=== PATIENT | male | born 1935 | race Caucasian/White ===

== ENCOUNTER 2020-12-17 20:39 | Inpatient (IN) | payer OTHER ==
[~2020-12-17] VITALS: Ht 180.3 cm; Wt 81.6 kg
[2020-12-17 21:43] LABS: BASOPHILS 0.9 % (0-2); EOSINOPHILS 0 % (0-7); HEMATOCRIT 43.8 % (42.0-54.0); HEMOGLOBIN 14.5 g/dL (13.5-17.5); LYMPHOCYTES 6.9 % (15-50); MCH 30.7 pg (26.0-34.0); MCHC 33.2 g/dL (31.0-37.0); MCV 92.5 fL (80.0-100.0); MONOCYTES 8.5 % (2-11); NEUTROPHILS 83.7 % (40-80); PLATELET COUNT 281 10x3/uL (130-400); RBC 4.73 10x6/uL (4.20-6.10); RDW 13.1 % (11.5-14.5); WBC 18.9 10x3/uL (4.8-10.8)
[2020-12-17 21:49] LABS: APTT 28.8 SECONDS (22.8-39.4); INR 1.46 (0.85-1.17); PROTIME 16.5 SECONDS (11.6-15.0)
[2020-12-17 22:00] VITALS: BP 186/66
[2020-12-17 22:11] LABS: ALBUMIN 2.5 g/dL (3.4-5.0); ALKALINE PHOSPHATASE 86 U/L (30-120); ALT (SGPT) 16 U/L (10-68); BILIRUBIN - TOTAL 0.32 mg/dL (0.2-1.3); CALCIUM 9.5 mg/dL (8.5-10.1); CARBON DIOXIDE 19.2 mmol/L (21.0-32.0); CHLORIDE - SERUM 98 mmol/L (98-107); CKMB 1.5 U/L (0.0-3.6); CREATINE KINASE 50 UL (21-232); CREATININE - SERUM 14.3 mg/dL (0.6-1.3); GLUCOSE 187 mg/dL (74-106); LIPASE 127 U/L (73-393); MAGNESIUM - SERUM 2.7 mg/dL (1.8-2.4); PROTEIN - SERUM 8.9 g/dL (6.4-8.2); SODIUM 137 mmol/L (136-145); THYROID STIMULATING HORMONE 0.45 uIU/mL (0.36-3.74); eGFR NON AFRICAN AMERICAN 3 mL/min (90-120)
[2020-12-17 22:12] LABS: CALC OSMOLALITY 322 mosm/kg (275-300)
[2020-12-17 22:13] LABS: TROPONIN-I 0.064 ng/mL (0.000-0.060)
[2020-12-17 22:14] LABS: POTASSIUM - SERUM 6.6 mmol/L (3.5-5.1); UREA NITROGEN 135 mg/dL (7-18)
[2020-12-17 22:56] LABS: BILIRUBIN NEGATIVE (NEGATIVE); KETONE NEGATIVE (NEGATIVE); NITRITE NEGATIVE (NEGATIVE); UROBILINOGEN NORMAL mg/dL (< 2)
[2020-12-17 22:58] LABS: BACTERIA FEW HPF (NONE SEEN); WHITE CELLS - URINE 25-50 HPF (0-1)
[2020-12-17 22:59] LABS: AMORPHOUS SEDIMENT MANY LPF (NONE SEEN)
[2020-12-17 23:00] VITALS: BP 159/70
[2020-12-17 23:01] LABS: UDS - AMPHET NEGATIVE QUAL (NEGATIVE); UDS - BARB NEGATIVE QUAL (NEGATIVE); UDS - BENZO NEGATIVE QUAL (NEGATIVE); UDS - COCAINE NEGATIVE QUAL (NEGATIVE); UDS - OPIATE POSITIVE QUAL (NEGATIVE); UDS - PCP NEGATIVE QUAL (NEGATIVE); UDS - THC NEGATIVE QUAL (NEGATIVE)
--- NOTE | 2020-12-18 | NUR ---
DRAINED 1400MLS FROM PAREDES CATHETER
[2020-12-18 00:35] VITALS: BP 148/54; BMI 25.1
[2020-12-18 04:00] VITALS: BP 102/76
[2020-12-18 06:15] LABS: BASOPHILS 0.1 % (0-2); EOSINOPHILS 0.1 % (0-7); HEMATOCRIT 38.8 % (42.0-54.0); HEMOGLOBIN 13.2 g/dL (13.5-17.5); MCH 31.4 pg (26.0-34.0); MCHC 33.9 g/dL (31.0-37.0); MCV 92.5 fL (80.0-100.0); MEAN PLATELET VOLUME 7.8 fL (7.4-10.4); MONOCYTES 7.7 % (2-11); NEUTROPHILS 86.1 % (40-80); PLATELET COUNT 256 10x3/uL (130-400); RBC 4.19 10x6/uL (4.20-6.10); RDW 13.1 % (11.5-14.5); WBC 15.9 10x3/uL (4.8-10.8)
[2020-12-18 06:41] LABS: CALCIUM 9.2 mg/dL (8.5-10.1); CARBON DIOXIDE 23.8 mmol/L (21.0-32.0); MAGNESIUM - SERUM 2.5 mg/dL (1.8-2.4); PHOSPHOROUS 6.3 mg/dL (2.5-4.9)
[2020-12-18 06:42] LABS: ANION GAP 19.5 mmol/L (8-16); CREATININE - SERUM 8.4 mg/dL (0.6-1.3); POTASSIUM - SERUM 5.3 mmol/L (3.5-5.1); TROPONIN-I 0.072 ng/mL (0.000-0.060)
--- NOTE | 2020-12-18 08:02 | NUR ---
PT LYING IN BED, AWAKE, RR EVEN NON LABORED, WITH O2 IN PLACE VIA NC. PT ANSWERS SOME QUESTIONS, ORAL MEDS HELD UNTIL PTS AWAKE MORE. NO NEEDS VOICED CLWR.
[2020-12-18 14:21] VITALS: Ht 180.3 cm; Wt 81.6 kg
--- NOTE | 2020-12-18 15:37 | NUR ---
SCHEDULED IV FLUIDS GIVEN, IV INFUSING WITHOUT DIFFICULTY. PT LYING IN BED , HOB RAISED, ORAL CARE PERFORMED WITH ASSISTANCE OF PT. PT STATES TO HAVE PAIN TO LEFT SIDE OF THROAT, OFFERED PRN PAIN MEDICATION, PT REFUSED. DAUGHTER AT BEDSIDE. NO FURTHER NEEDS VOICED. CLWR.
[2020-12-18 21:00] VITALS: BP 111/63
[2020-12-19] VITALS: BP 140/67
--- NOTE | 2020-12-19 00:12 | NUR ---
I have reviewed this patient and I concur with the Shift Assessment completed by the Licensed Practical Nurse today this shift.
[2020-12-19 04:00] VITALS: BP 145/66
[2020-12-19 06:57] LABS: BASOPHILS 0.6 % (0-2); EOSINOPHILS 1.9 % (0-7); HEMATOCRIT 34.8 % (42.0-54.0); HEMOGLOBIN 11.5 g/dL (13.5-17.5); LYMPHOCYTES 11.1 % (15-50); MCH 30.8 pg (26.0-34.0); MCHC 33.1 g/dL (31.0-37.0); MCV 93.3 fL (80.0-100.0); MEAN PLATELET VOLUME 7.6 fL (7.4-10.4); MONOCYTES 9.6 % (2-11); NEUTROPHILS 76.8 % (40-80); PLATELET COUNT 244 10x3/uL (130-400); RBC 3.73 10x6/uL (4.20-6.10); RDW 13.5 % (11.5-14.5); WBC 14.3 10x3/uL (4.8-10.8)
[2020-12-19 07:09] LABS: ALBUMIN 2.2 g/dL (3.4-5.0); ANION GAP 12.4 mmol/L (8-16); BILIRUBIN - TOTAL 0.26 mg/dL (0.2-1.3); CALCIUM 8.5 mg/dL (8.5-10.1); CARBON DIOXIDE 26.3 mmol/L (21.0-32.0); MAGNESIUM - SERUM 1.9 mg/dL (1.8-2.4); POTASSIUM - SERUM 4.7 mmol/L (3.5-5.1); PROTEIN - SERUM 7.4 g/dL (6.4-8.2)
[2020-12-19 07:11] LABS: CREATININE - SERUM 1.9 mg/dL (0.6-1.3)
[2020-12-19 08:00] VITALS: BP 148/63
--- NOTE | 2020-12-19 09:20 | NUR ---
PT LYING IN BED WITH HOB RAISED, RR EVEN NON LABORED. PT ON ROOM AIR, ALERT, BUT CONFUSION NOTED. PT HAD LEGS OFF BED, INSTRUCTED PT TO STAY IN BED AND USE CALL LIGHT PRIOR TO EXITING BED. PT DENIES ANY PAIN. NO NEEDS VOICED. CLWR.
--- NOTE | 2020-12-19 10:23 | NUR ---
SPOKE WITH ALPHONSE BENOIT WITH NEPHRO, PER HER DO NOT REMOVE PAREDES CATH UNTIL FURTHER NOTICE. RENAL US TO BE COMPLETED FOR POSSIBLE OBSTRUCTION.
--- NOTE | 2020-12-19 11:43 | NUR ---
THERAPY IN ROOM WITH PT FOR EVAL AT THIS TIME.
--- NOTE | 2020-12-19 11:54 | NUR ---
SPEECH AND OT THERAPY SPOKE REGARDING BEDSIDE SWALLOW STUDY, ORDER RECEIVED FOR REGULAR DIET AND THIN LIQUIDS.
[2020-12-19 16:00] VITALS: BP 137/74
--- NOTE | 2020-12-19 20:01 | NUR ---
GONE TO CT VIA BED.
[2020-12-19 21:00] VITALS: BP 154/64
[2020-12-20] VITALS (7 sets, daily range): BP systolic 121–181; BP diastolic 64–83
--- NOTE | 2020-12-20 04:08 | NUR ---
I have reviewed this patient and I concur with the Shift Assessment completed by the Licensed Practical Nurse today this shift.
[2020-12-20 06:29] LABS: BASOPHILS 0.6 % (0-2); EOSINOPHILS 2.2 % (0-7); HEMATOCRIT 36.1 % (42.0-54.0); LYMPHOCYTES 17.7 % (15-50); MCH 30.8 pg (26.0-34.0); MCHC 33.3 g/dL (31.0-37.0); MCV 92.4 fL (80.0-100.0); MEAN PLATELET VOLUME 7.9 fL (7.4-10.4); MONOCYTES 10.3 % (2-11); NEUTROPHILS 69.2 % (40-80); PLATELET COUNT 240 10x3/uL (130-400); RBC 3.91 10x6/uL (4.20-6.10); RDW 13.5 % (11.5-14.5); WBC 14.2 10x3/uL (4.8-10.8)
--- NOTE | 2020-12-20 06:38 | NUR ---
LAB CALLED WITH POSITIVE BLOOD CULTURE. GRAM POSITIVE COCCI. MIKI REYNOLDS AND ORDERD VANC TO BE DOSED BY PHARMACY.
[2020-12-20 06:41] LABS: ALBUMIN 2.3 g/dL (3.4-5.0); ANION GAP 14.5 mmol/L (8-16); BILIRUBIN - TOTAL 0.37 mg/dL (0.2-1.3); CALCIUM 8.9 mg/dL (8.5-10.1); CARBON DIOXIDE 24.5 mmol/L (21.0-32.0); CREATININE - SERUM 1.2 mg/dL (0.6-1.3); MAGNESIUM - SERUM 1.8 mg/dL (1.8-2.4); PROTEIN - SERUM 7.5 g/dL (6.4-8.2)
--- NOTE | 2020-12-20 07:00 | NUR ---
REPORT RECEIVED. PATIENT IS LYING IN BED, RESTING WITH EYES CLOSED. NO S/S OF DISTRESS OBSERVED, RR EVEN AND UNLABORED ON ROOM AIR. PIV TO LT AC PATENT, INFUSING LR, PIV TO LT FA PATENT. PATIENT HAS A CONTUSION TO RIGHT SIDE OF FOREHEAD FROM FALL LAST NIGHT. F/C PATENT, DRAINING CLEAR YELLOW URINE BY GRAVITY TO LEFT SIDE OF BED. NO NEEDS EXPRESSED AT THIS TIME. CL IN REACH, BED LOCKED AND LOWERED. BED ALARM ON. WILL CPOC.
--- NOTE | 2020-12-20 10:12 | NUR ---
PHYSICAL THERAPY REPORTED TO THIS NURSE THAT PATIENT IS HAVING RIGHT SIDED WEAKNESS, RIGHT SIDE FACIAL DROOP, AND SLURRED SPEECH. REPORTED THESE FINDINGS TO PRISCILLA EMMANUEL APN.
--- NOTE | 2020-12-20 12:35 | NUR ---
Nutrition Follow-up: Diet advanced to regular with thin liquids following ST eval yesterday. Noted PT reported R-sided weakness, facial droop and slurred speech this AM. MRI pending. ST to re-evaluate. Diet: Regular PO intake: 50-75% yesterday Wt: 180# (12/18) Labs noted: Na 147, Glu 155, A1c 7.1, Alb 2.3 Meds noted: Florajen, Pepcid, LR @ 75, electrolyte protocol -Change to carb consistent diet (A1c 7.1); consistencies per COMPUTER EQUIPMENT INSTALLER. -Encourage PO intake and honor food preferences within diet restrictions. -Need new wt. -RD follow-up: 12/24
--- NOTE | 2020-12-20 14:08 | NUR ---
OT NOTE: UPON ENTERING ROOM, PT WAS VERY LETHARGIC. ATTEMPTED TO ASK PT QUESTIONS BUT HIS SPEECH WAS VERY GARBLED.. RE ASSESSED PT AND HE WAS NOTED TO HAVE VERY POOR MOVEMENT ON R SIDE; NOW MAX ASSIST WITH BED MOB; UNABLE TO GRASP WALKER WITH R HAND; DIFFICULTY ADVANCING R FOOT FOR TRANSFERS.. UNABLE TO PERFORM ADLS. INFORMED NURSING..PT APPARENTLY HAD A FALL LAST NIGHT, HOWEVER, TODAY, HE IS MUCH DIFFERENT THAN WHEN EVALUATED YESTERDAY. S/S OF CVA.. FORTINO DENISE, OTR/L 2-107
[2020-12-21 05:18] VITALS: BP 153/52
[2020-12-21 06:14] LABS: BASOPHILS 0.9 % (0-2); EOSINOPHILS 3.1 % (0-7); HEMATOCRIT 34.6 % (42.0-54.0); HEMOGLOBIN 11.7 g/dL (13.5-17.5); LYMPHOCYTES 23.8 % (15-50); MCH 31.3 pg (26.0-34.0); MCHC 33.9 g/dL (31.0-37.0); MCV 92.1 fL (80.0-100.0); MEAN PLATELET VOLUME 8.1 fL (7.4-10.4); MONOCYTES 9.8 % (2-11); NEUTROPHILS 62.4 % (40-80); PLATELET COUNT 251 10x3/uL (130-400); RBC 3.75 10x6/uL (4.20-6.10); RDW 13.4 % (11.5-14.5)
[2020-12-21 06:37] LABS: ALBUMIN 2.1 g/dL (3.4-5.0); ALKALINE PHOSPHATASE 67 U/L (30-120); BILIRUBIN - TOTAL 0.37 mg/dL (0.2-1.3); CALCIUM 8.5 mg/dL (8.5-10.1); CARBON DIOXIDE 27.1 mmol/L (21.0-32.0); CHLORIDE - SERUM 111 mmol/L (98-107); GLUCOSE 149 mg/dL (74-106); MAGNESIUM - SERUM 1.6 mg/dL (1.8-2.4); POTASSIUM - SERUM 3.5 mmol/L (3.5-5.1); PROTEIN - SERUM 6.9 g/dL (6.4-8.2); SODIUM 145 mmol/L (136-145); eGFR NON AFRICAN AMERICAN 75 mL/min (90-120)
[2020-12-21 06:41] LABS: ALT (SGPT) 24 U/L (10-68); CALC OSMOLALITY 295 mosm/kg (275-300); UREA NITROGEN 23 mg/dL (7-18)
--- NOTE | 2020-12-21 07:15 | NUR ---
RECEIVE SHIFT REPORT. ON CONTACT ISOLATION. RESTING IN BED WITH TV ON. WILL CONTINUE POC AND SAFETY PRECAUTIONS. CALL LIGHT IN REACH.
[2020-12-21 09:29] VITALS: BP 169/60
--- NOTE | 2020-12-21 10:46 | NUR ---
PER IDT THIS AM WITH BRENNA TRAN AND FORTINO ZARAGOZA CM AND SKYLER. WE DISCUSSED PROGRESS NOTE FROM 12/18 WHERE DAUGHTER WANTS PATIENT MADE DNR. MARJAN SAID YES TO MAKE HIM ONE. NEW ORDERS PLACED.
[2020-12-21 12:42] VITALS: BP 158/59
--- NOTE | 2020-12-21 15:40 | NUR ---
REHAB PRESCREENING Rehab referral received and chart reviewed. This patient is only doing standing with PT. We will continue to follow this patient for functional improvement. May need SNF placement. Thank you for this referral! Rylee Garrido, PALM GATHERER Rehab PD
--- NOTE | 2020-12-21 15:59 | NUR ---
OT NOTE: PT REQUIRED MAX A FOR SUPINE TO SIT. PT REQUIRED CGA-MIN A FOR STATIC SITTING BALANCE. PT COMPLETED WT BEARING IN RUE TO FACILITATE FUNCTIONAL RETURN. PT COMPLETED SIT TO STAND WITH MOD A. BED ALARM ON AND CL WITHIN REACH. [phone] JESUS WOODWARD COTA
[2020-12-21 20:37] VITALS: BP 164/56
[2020-12-22 06:51] LABS: BASOPHILS 1.2 % (0-2); EOSINOPHILS 3.4 % (0-7); HEMATOCRIT 34.8 % (42.0-54.0); HEMOGLOBIN 11.7 g/dL (13.5-17.5); LYMPHOCYTES 20.9 % (15-50); MCH 30.9 pg (26.0-34.0); MCHC 33.6 g/dL (31.0-37.0); MCV 92.1 fL (80.0-100.0); MEAN PLATELET VOLUME 8.5 fL (7.4-10.4); NEUTROPHILS 65.5 % (40-80); PLATELET COUNT 281 10x3/uL (130-400); RBC 3.78 10x6/uL (4.20-6.10); RDW 13.2 % (11.5-14.5)
[2020-12-22 07:36] LABS: ALBUMIN 2.1 g/dL (3.4-5.0); ALKALINE PHOSPHATASE 67 U/L (30-120); ALT (SGPT) 30 U/L (10-68); BILIRUBIN - TOTAL 0.54 mg/dL (0.2-1.3); CALC OSMOLALITY 286 mosm/kg (275-300); CALCIUM 8.2 mg/dL (8.5-10.1); CARBON DIOXIDE 25.3 mmol/L (21.0-32.0); CHLORIDE - SERUM 107 mmol/L (98-107); GLUCOSE 136 mg/dL (74-106); MAGNESIUM - SERUM 1.6 mg/dL (1.8-2.4); POTASSIUM - SERUM 3.6 mmol/L (3.5-5.1); PROTEIN - SERUM 6.6 g/dL (6.4-8.2); SODIUM 142 mmol/L (136-145); VANCOMYCIN - TROUGH 15.4 ug/mL (10.0-20.0); eGFR NON AFRICAN AMERICAN 75 mL/min (90-120)
[2020-12-22 07:52] VITALS: BP 166/64
[2020-12-22 08:12] LABS: UREA NITROGEN 17 mg/dL (7-18)
--- NOTE | 2020-12-22 08:59 | NUR ---
AM MEDS GIVEN WHOLE IN APPLE SAUCE, PT TOOK ALL MEDICATIONS WITH NO TROUBLE SWALLOWING. PT ALERT BUT ONLY MUMBLES, NOT ABLE TO ASSESS FOR ORIENTATION. RESP EVEN AND NONLABORED ON RA. LT FA INFUSING LR AT 75CC/HR. SB-49 ON TELE. PAREDES DRAINING YELLOW URINE TO GRAVITY. SCDS ON BILAT. TRIED FEEDING PT HIS BREAKFAST, ONLY TOOK A COUPLE BITES AND THEN WOULD TURN HIS HEAD WHEN TRYING TO GIVE HIM ANOTHER BITE. ALL NEEDS MET, DUSTIN ALARM ON, CALL LIGHT IN REACH, WILL CONTINUE PLAN OF CARE.
--- NOTE | 2020-12-22 10:18 | NUR ---
CALLED [facility] AND SPOKE WITH DAVID, ASKED HER IF SHE KNEE WHY PT WAS PLACED ON CONTACT ISOLATION, PER DAVID IT WAS TEMPORARY ISOLATION UNTIL RESULTS FOR CULTURES CAME BACK. CULTURES ARE BACK AND ARE NEGATIVE FOR MRSA.
[2020-12-22 11:11] VITALS: BP 103/70
--- NOTE | 2020-12-22 12:41 | NUR ---
WENT OVER PLAN OF CARE WITH PT'S DAUGHTER, DR. SEGURA AT BEDSIDE TO ADDRESS ANY CONCERNS. PROVIDED PT WITH TWO BLANKETS PER PT'S DAUGHTERS REQUEST. PT RESTING COMFORTABLY IN BED. ALL NEEDS METS, CALL LIGHT IN REACH.
--- NOTE | 2020-12-22 15:11 | NUR ---
MAG GIVEN FOR LOW MAG. PT DENIES ANY NEEDS, RESTING COMFORTABLY, CALL LIGHT IN REACH, DUSTIN ALARM ON.
[2020-12-22 15:47] VITALS: BP 157/68
[2020-12-22 20:00] VITALS: BP 168/72
[2020-12-23 00:18] VITALS: BP 153/66
[2020-12-23 04:02] VITALS: BP 153/70
[2020-12-23 06:04] LABS: BASOPHILS 0.6 % (0-2); EOSINOPHILS 2.8 % (0-7); HEMATOCRIT 34.6 % (42.0-54.0); HEMOGLOBIN 11.5 g/dL (13.5-17.5); LYMPHOCYTES 16.2 % (15-50); MCH 30.2 pg (26.0-34.0); MCHC 33.1 g/dL (31.0-37.0); MCV 91.3 fL (80.0-100.0); MEAN PLATELET VOLUME 8.2 fL (7.4-10.4); MONOCYTES 7.3 % (2-11); NEUTROPHILS 73.1 % (40-80); PLATELET COUNT 292 10x3/uL (130-400); RBC 3.79 10x6/uL (4.20-6.10); RDW 13.1 % (11.5-14.5); WBC 14.6 10x3/uL (4.8-10.8)
[2020-12-23 07:14] LABS: BILIRUBIN - TOTAL 0.46 mg/dL (0.2-1.3); CARBON DIOXIDE 28.3 mmol/L (21.0-32.0); CREATININE - SERUM 1.1 mg/dL (0.6-1.3); MAGNESIUM - SERUM 1.4 mg/dL (1.8-2.4); POTASSIUM - SERUM 3.3 mmol/L (3.5-5.1); PROTEIN - SERUM 6.8 g/dL (6.4-8.2); VANCOMYCIN - TROUGH 21.9 ug/mL (10.0-20.0)
[2020-12-23 08:13] VITALS: BP 140/55
--- NOTE | 2020-12-23 09:29 | NUR ---
AM MEDS GIVEN CRUSHED AND IN APPLE SAUCE. TRIED TO GET PT TO EAT BREAKFAST BUT HE REFUSED, DID GET HIM TO DRINK OVER HALF OF HIS ENSURE. PHYSICAL THERAPY AT BEDSIDE TO WORK WITH PT. ALL NEEDS MET, DUSTIN ALARM ON, CALL LIGHT IN REACH.
--- NOTE | 2020-12-23 11:00 | NUR ---
PT'S DAUGHTER AT BEDSIDE, STATES THAT PT IS ACTING LIKE HE IS HURTING. WENT TO ASK PT IF HE WAS HURTING AND HE STATED YES, ASKED HIM WHERE HE WAS HURTING AND HE POINTED TO HIS HEAD. CALLED ARIS BENOIT AND ASKED HER IF PT COULD HAVE SOMETHING FOR PAIN, SHE STATED THAT THEY WERE FIXING TO ROUND ON PT AND THEY WOULD ORDER SOMETHING AFTER THAT.
--- NOTE | 2020-12-23 11:35 | NUR ---
NORCO GIVEN FOR PAIN LEVEL OF 5/10. PT DENIES ANY OTHER NEEDS AT THIS TIME. DAUGHTER AT BEDSIDE, CALL LIGHT IN REACH.
[2020-12-23 11:44] VITALS: BP 155/63
[2020-12-23 12:11] LABS: MAGNESIUM - SERUM 2.1 mg/dL (1.8-2.4); POTASSIUM - SERUM 3.8 mmol/L (3.5-5.1)
--- NOTE | 2020-12-23 14:50 | EC ---
PATIENT:JOSE CHAIREZ DATE OF SERVICE: 12/17/20 SEX: M MEDICAL RECORD: [id number] DATE OF : 35 LOCATION:D.M2 D.212 AGE OF PATIENT: 85 ADMISSION DATE: 12/17/20 REFERRING PHYSICIAN: INTERPRETING PHYSICIAN: CALLUM JACKSON MD ECHOCARDIOGRAM REPORT ECHO CHARGES 4 ECHO COMPLETE Date: 12/22/20 CLINICAL DIAGNOSIS: CVA ECHOCARDIOGRAPHIC MEASUREMENTS (adult normal given) AC root (d.<3.7cm) 3.2 cm LV Septum d (<1.2 cm> 1.1 cm Valve Excursion 1.3 cm LV Septum (systole) 1.4 cm Left Atria (s.<4.0cm> 4.3 cm LVPW d(<1.2cm) 0.6 cm RV (d.<2.3cm) 2.6 cm LVPW (sytole) 0.9 cm LV diastole(<5.6CM) 5.6 cm MV E-F(>70mm/sec) cm LV systole 4.9 cm LVOT Diameter 1.6 cm MV exc.(>10mm) 0.6 cm Est.ejection fraction (50-75%) % DOPPLER: LVIT cm/sec A 126 cm/sec E 86 cm/sec LA cm/sec RVSP 21 mmHg LVOT 90 cm/sec AOP1/2T m/s Asc. Ao 153 cm/sec RVOT 60 cm/sec RA cm/sec PA 60 cm/sec AV Gradient Peak 9.4 mmHg AV Mean 5.2 mmHg AV Area 1.3 cm MV Gradient Peak 6.5 mmHg MV Mean 2.3 mmHg MV Area cm COMMENTS: Log Feeder: Aisha MARTINS Cafe Site Attendant: 5 Dr. Jackson TAPE# Pericardial Effusion N DATE OF SERVICE: CLINICAL INDICATION: CVA. INTERPRETATION: Normal left ventricular chamber size and contractile function with ejection fraction of 55% to 60%. Mild left atrial chamber enlargement. Right atrium and right ventricular chamber size and function appears normal. Aortic valve appears normal. No aortic stenosis/regurgitation. Mitral valve appears normal. No mitral regurgitation. Tricuspid valve appears normal. Trace tricuspid regurgitation. Pulmonic valve appears normal. No pulmonary ECHOCARDIOGRAM REPORT [id number] JOSE CHAIREZ regurgitation. No pericardial effusion visualized. IMPRESSION: Normal left ventricular chamber size and contractile function with an ejection fraction of 55% to 60%. TRANSINT:[id number] Voice Confirmation ID: [id number] DOCUMENT ID: [id number] CALLUM JACKSON MD at 1450 CC: [id number] DICTATION DATE: 12/22/201723 RODEO RIDER: 12/22/20 193 ADM IN [facility] [address] [place] [address]
[2020-12-23 16:03] VITALS: BP 135/53
--- NOTE | 2020-12-23 17:39 | NUR ---
NORCO GIVEN FOR PAIN LEVEL OF 6/10. ALSO REPOSITIONED PT IN BED, PT DENIES ANY NEEDS AT THIS TIME. FAMILY AT BEDSIDE, CALL LIGHT IN REACH.
[2020-12-23 19:00] VITALS: BP 128/62
[2020-12-24] VITALS: BP 119/71
[2020-12-24 04:00] VITALS: BP 156/75
[2020-12-24 06:59] LABS: BASOPHILS 0.8 % (0-2); EOSINOPHILS 4.2 % (0-7); HEMATOCRIT 31.9 % (42.0-54.0); HEMOGLOBIN 10.9 g/dL (13.5-17.5); LYMPHOCYTES 17.8 % (15-50); MCHC 34.1 g/dL (31.0-37.0); MCV 90.9 fL (80.0-100.0); MEAN PLATELET VOLUME 8.6 fL (7.4-10.4); MONOCYTES 7.2 % (2-11); PLATELET COUNT 282 10x3/uL (130-400); RBC 3.51 10x6/uL (4.20-6.10); WBC 14.1 10x3/uL (4.8-10.8)
[2020-12-24 07:35] LABS: ALKALINE PHOSPHATASE 70 U/L (30-120); BILIRUBIN - TOTAL 0.37 mg/dL (0.2-1.3); CALC OSMOLALITY 276 mosm/kg (275-300); CALCIUM 7.7 mg/dL (8.5-10.1); CARBON DIOXIDE 28.8 mmol/L (21.0-32.0); CHLORIDE - SERUM 104 mmol/L (98-107); GLUCOSE 122 mg/dL (74-106); MAGNESIUM - SERUM 1.8 mg/dL (1.8-2.4); POTASSIUM - SERUM 3.8 mmol/L (3.5-5.1); PROTEIN - SERUM 6.3 g/dL (6.4-8.2); SODIUM 138 mmol/L (136-145); UREA NITROGEN 13 mg/dL (7-18); eGFR NON AFRICAN AMERICAN 75 mL/min (90-120)
[2020-12-24 07:36] LABS: ALT (SGPT) 41 U/L (10-68)
[2020-12-24 07:45] VITALS: BP 164/64
--- NOTE | 2020-12-24 07:55 | NUR ---
PT LYING IN BED WITH HOB RAISED, RR EVEN NON LABORED. PT EYES CLOSED AND APPEARS TO BE RESTING COMFORTABLY. AWAKENS EASILY, NO NEEDS VOICED. CLWR.
--- NOTE | 2020-12-24 09:05 | NUR ---
ATTEMPTED TO FINISH GIVING AM MEDS, PT HOB RAISED, AWAKENS EASILY. PT TOOK ONE PILL BUT WOULD NOT TAKE THE REST OF HIS MEDICATIONS. ENCOURAGEMENT GIVEN. DIFFICULTY SWALLOWING NOTED WHILE TAKING MEDICATIONS. NO NEEDS OR PAIN REPORTED. CLWR.
[2020-12-24 11:44] VITALS: BP 160/68
--- NOTE | 2020-12-24 13:55 | NUR ---
Nutrition Follow-up: Pt confused. Poor PO intake. Noted hospice consult ordered. Diet: Diabetic, Mech Soft with Ground Meat, Poydras Thick Liquids, Ensure TID PO intake: 0% x 9 meals (12/21-12/23) No new wt; last wt: 180# (12/18) Labs noted: Glu 122, Ca 7.7, Alb 2.0 Meds noted: Florajen, Pepcid, LR @ 75, electrolyte protocol -Encourage PO intake and honor food preferences within diet restrictions. -Need new wt. -RD will follow up within 2-3 days.
--- NOTE | 2020-12-24 14:55 | NUR ---
[facility]PO[facility] WITH FAMILY AND PATIENT REGARDING EVAL AT THIS TIME. PT WILL BE INPATIENT HOSPICE AT [facility] FACILTY PER HOSPICE NURSE. FAMILY AWARE. WILL AWAIT ORDERS.
[2020-12-24] MEDS ORDERED: IPRAT-ALBUT 0.5-3 ML INH (15:27)
[2020-12-24] MEDS ORDERED: PLAVIX75 MG PO (15:28)
[2020-12-24] MEDS ORDERED: FLORAJEN DIGES1 EACH PO (15:28)
[2020-12-24] MEDS ORDERED: COZAAR50 MG PO (15:28)
[2020-12-24] MEDS ORDERED: FLOMAX0.4 MG PO (15:28)
[2020-12-24] MEDS ORDERED: PEPCID PO (15:28)
[2020-12-24] MEDS ORDERED: HYDROCODON-ACE1 EAC7 PO (15:28)
[2020-12-24] MEDS ORDERED: VANCOMYCIN 750750 MG IV (15:29)
[2020-12-24] MEDS ORDERED: ROCEPHIN 1 GM/D51 G1 IV (15:29)
[2020-12-24 15:37] VITALS: BP 151/66
--- NOTE | 2020-12-24 16:28 | NUR ---
OT NOTE: PT COMPLETED SUPINE TO SIT WITH MOD A. PT COMPLETED WT BEARING IN RUE WITH MOD A. PT REQUIRED MAX-TOTAL A FOR LB HYGIENE TASKS. PT REQUIRED MOD A FOR POSITIONING IN BED. ALARM ON AND CL IN REACH. [phone] JESUS WOODWARD COTA
--- NOTE | 2020-12-24 17:44 | NUR ---
CALLED [facility] AT THIS TIME FOR TRANSPORT TO [facility].
--- NOTE | 2020-12-24 17:56 | NUR ---
REPORT CALLED TO JORGE ALBERTO AT [facility] AT THIS TIME.
--- NOTE | 2020-12-24 18:05 | NUR ---
PT LINENS CHANGED, BM CLEANED AND NEW GOWN PLACED. CATHETER EMPTIED. NO FURTHER NEEDS VOICED. CLWR, DAUGHTER AT BEDSIDE.
--- NOTE | 2020-12-24 18:10 | NUR ---
DISCHARGE REVIEWED WITH PT DAUGHTER AT BEDSIDE, ETA FOR TRANSPORT IS 45 MIN. FAMILY AWARE.
== END 2020-12-24 19:21 | disposition home health service (06) | DRG 871 ==
LOC: D.ER 20:39 → D.M2 23:31
PROVIDERS: Emergency Medicine; Family Medicine; ADMIT Family Medicine Adult Medicine; ATTEND Family Medicine Adult Medicine
DX: A41.9 Sepsis, unspecified organism (principal); G93.41 Metabolic encephalopathy; I21.A1 Myocardial infarction type 2; N17.9 Acute kidney failure, unspecified; N39.0 Urinary tract infection, site not specified; R65.20 Severe sepsis without septic shock; E87.5 Hyperkalemia; C44.42 Squamous cell carcinoma of skin of scalp and neck; R97.20 Elevated prostate specific antigen [PSA]; Z66 Do not resuscitate; E83.42 Hypomagnesemia; B95.61 Methicillin susceptible Staphylococcus aureus infection as the cause of diseases classified elsewhere